=== PATIENT | male | born 1950 | race Caucasian/White ===

== ENCOUNTER 2017-01-03 11:21 | Emergency (ER) | payer BC ==
[2017-01-03] MEDS ORDERED: ONDANSETRON INJ 4 MG/2 ML VIAL IV ONE (11:23)
[2017-01-03] MEDS ORDERED: HYDROmorphone HCL INJ 2 MG/ML VIAL IV ONE ×3 (11:23→11:52)
--- NOTE | 2017-01-03 11:32 | ED.PDOC ---
History of Present Illness - General Chief Complaint: Abdominal Pain Stated Complaint: sudden RLQ abdominal pain Time Seen by Provider: 01/03/17 11:22 Information Source: patient, RN notes reviewed, Vital Signs reviewed, EMS notes reviewed Exam Limitations: clinical condition - SM guarding and unable to allow examination at initial assessment Additional Information: Pt states sudden onset RLQ pain about 1.5 hours ago associated with nausea. Pt writhing in pain. His last meal was breakfast at 0930. Last BM last night normal. called 911. EMS reports pain with every bump on ride. - History of Present Illness Abdominal Pain Onset Location: RLQ Pain Radiation: no radiation Quality: severe, steady, stabbing Timing/Duration: 1-3 hours Improving Factors: nothing Worsening Factors: movement Associated Symptoms: nausea/vomiting Review of Systems - Review of Systems Constitutional: States: no symptoms reported EENTM: States: no symptoms reported Respiratory: States: no symptoms reported Cardiology: States: no symptoms reported Gastrointestinal/Abdominal: States: see HPI, abdominal pain, nausea Genitourinary: States: no symptoms reported Musculoskeletal: States: no symptoms reported Skin: States: no symptoms reported Neurological: States: no symptoms reported Endocrine: States: no symptoms reported Hematologic/Lymphatic: States: no symptoms reported Past Medical History (General) - Patient Medical History Hx Hypertension: Yes Hx Other PMH: Yes - Hyperlipidemia Family Medical History - Family History Father Family History: Unknown Living Status: Unknown Physical Exam - Physical Exam General Appearance: Ill Appearing, Restless, Well Developed, Well Nourished Eyes, Ears, Nose, Throat Exam: PERRL/EOMI, normal ENT inspection Neck: full range of motion, supple Respiratory: lungs clear, normal breath sounds, no respiratory distress, no accessory muscle use Cardiovascular/Chest: normal peripheral pulses, regular rate, rhythm Gastrointestinal/Abdominal: soft, guarding, tenderness - RLQ Back Exam: normal inspection, no CVA tenderness, no vertebral tenderness Extremity: normal range of motion, non-tender, normal inspection 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 Dilaudid 1 mg IV followed by another Dialudid 1 mg IV within 10 minutes due to inadequate response with first dose. CT Scan Abd/Pelvis with Contrast and labs ordered. IV fluids running. 01/03/17 11:44 DDx: Appendicitis, Urolithiasis, Strangulated Hernia, Ischemic Bowel 01/03/17 11:46 Patient reported some improvement in pain after 2nd dose of Dilaudid 1 mg IV. 01/03/17 12:18 Patient's pain down to 6/10 after 3rd dose of Dilaudid [address] looked at by me. Waiting for Radiology read. Possible intussusception. Lactate ordered. 01/03/17 13:18 Pt's pain under control. He denies pain now. He has a soft abdomen. Labs back - essentially normal. CT Scan report back - diverticular disease but no evidence of diverticulitis. Severe lumbar degenerative changes. Pt states he has been having intermittent low back pain for a while now that has been worsening lately. He was doing a lot of yard work yesterday and he was doing yard work when it started today as well. He reports taking Advil 2 tabs bid for a long time for pain. Plan is for observation for another hour. If he is stable, then will d/c home with Rx for T3 and strict return precautions. 01/03/17 14:33 Patient continues to be pain free. His POX goes as low as 85% on Room Air but when prompted to take 2 to 3 deep breaths his POX goes up rapidly to 96%. Ok to discharge home since intends to get a POX monitor from [employer] and she will watch him and remind him to take deep breaths periodically as needed. Strict return precautions given. Departure - Departure Clinical Impression: Anterolisthesis Abdominal pain Qualifiers: Abdominal location: right lower quadrant Qualified Code(s): R10.31 - Right lower quadrant pain Back pain Qualifiers: Back pain location: low back pain Chronicity: acute Back pain laterality: right Sciatica presence: unspecified whether sciatica present Qualified Code(s) : M54.5 - Low back pain Time of Disposition: 14:45 Disposition: Discharge to Home or Self Care Condition: Fair Instructions: DI for Low Back Pain Referrals: LYNETTE HAGER [Primary Care Provider] - 1-2 Weeks Prescriptions: Acetamin W/Cod #3 Tab [Tylenol #3 Tab] 1 ea PO Q4-6H PRN #20 tab PRN Reason: Pain -- Moderate To Severe Home Medications: Ambulatory Orders Acetamin W/Cod #3 Tab [Tylenol #3 Tab] 1 ea PO Q4-6H PRN #20 tab 01/03/17 Additional Instructions: Return to ER if severe pain recurs/unable to function. Follow-up with Primary Care Provider regarding CT Scan findings.
[2017-01-03 11:36] VITALS: TEMP 97.1
[2017-01-03] MEDS ORDERED: SODIUM CHLORIDE 0.9% 1000ML 1,000 ML IVS PRN (11:37)
[2017-01-03] MEDS ORDERED: LACTATED RINGERS 1,000 ML ONE (11:41)
[2017-01-03] MEDS: LACTATED RINGERS 1,000 ML IVS PRN ×2 (11:43→12:20)
[2017-01-03] MEDS ORDERED: SODIUM CHLORIDE 0.9% 1000ML 1,000 ML IVS ONE (11:43)
[2017-01-03] MEDS ORDERED: KETOROLAC TROMETHAMINE INJ 30 MG/ML VIAL IV ONE (12:01)
[2017-01-03] MEDS ORDERED: fentaNYL CITRATE INJ 50 MCG/ML AMP IV PRN (12:01)
[2017-01-03] MEDS ORDERED: PIPERACILLIN/TAZOBACTAM 4.5 GM in SODIUM CHLORIDE 0.9% 100ML 100 ML IVPB ONE (12:53)
[2017-01-03] MEDS ORDERED: levoFLOXacin 750MG IV 750 MG in PREMIX BAG 1 BAG IVPB ONE (12:53)
--- NOTE | 2017-01-03 12:53 | CT ---
EXAM: Abdomen/Pelvis w/Contrast CLINICAL INDICATION: 66-year-old male with severe RIGHT lower quadrant abdominal pain. COMPARISON: None. EXAMINATION: CT of the abdomen and pelvis was performed following intravenous administration of contrast. Oral contrast was not administered. Multiplanar reformatted images were provided. This exam was performed according to our departmental dose optimization program which includes use of automated exposure control, adjustment of the mA and/or kV according to patient size and/or use of iterative reconstruction technique. FINDINGS: Evaluation through the lower chest and upper abdomen is in some areas severely limited secondary to dense streak artifact from the patient's arms positioned over the chest. Chest: Evaluation through the lung bases reveals no focal opacity, pleural effusion or pneumothorax. Heart size is within normal limits. No pericardial effusion. Abdomen and pelvis: Lobulated focus of low attenuation is identified present at the level of the LEFT lobe liver measuring 12 mm with Hounsfield units measuring approximately 16 suggesting simple hepatic cyst. Superior pole circumscribed focus of hypoattenuation within the RIGHT kidney measuring 9 mm with Hounsfield units measuring approximately 18 suggestive of a simple renal cyst. On the LEFT a 15 mm exophytic circumscribed hypoattenuating lesion at the level of the renal hilum with Hounsfield units measuring approximately four compatible with simple renal cyst. The liver, gallbladder, pancreas, spleen, bilateral kidneys and bilateral adrenal glands are otherwise within normal limits. The vessels are patent and normal in caliber. No abdominopelvic lymph nodes are noted to be pathologically enlarged by CT measurement criteria. The bowel is within normal limits with fecal debris present throughout the large bowel. There is no abnormal bowel wall thickness or bowel dilation. Diverticular disease without findings to suggest diverticulitis. No free air. No free abdominopelvic fluid collections. The appendix is within normal limits. The osseous structures revealed degenerative change, particularly of the lower lumbar spine facets. Grade 1 anterolisthesis of L4 relative to L5 suspected secondary to severe facet change at that level. Severe neuroforaminal narrowing present at the L3-4 and L4-5, L5-S1 vertebral levels. Small bilateral fat-containing inguinal hernia. IMPRESSION: 1. No specific acute intra-abdominal findings are noted to suggest etiology of the patient's abdominal pain. 2. 12 mm hepatic cyst. 3. 15 mm LEFT renal simple cyst. 4. Diverticular disease without findings to suggest diverticulitis. 5. The appendix is within normal limits. 6. Grade 1 anterolisthesis of L4 relative to L5 suspected secondary to severe facet change at that level. Severe neuroforaminal narrowing present at the L3-4 and L4-5, L5-S1 vertebral levels. Further evaluation with MRI may be considered. Streak artifact from patient's arm positioning limits evaluation of the lower chest and upper abdomen. Electronically signed by: Soledad Benjamin MD 01/03/2017 12:51 PM CDT Workstation: [id number]
[2017-01-03 14:45] VITALS: BP 127/58; O2SAT 94
== END 2017-01-03 14:49 | disposition home or self-care (01) ==
LOC: ER 11:21
DX: R10.31 Right lower quadrant pain (principal); M54.5 Low back pain; I10 Essential (primary) hypertension; E78.5 Hyperlipidemia, unspecified
CPT/HCPCS: 36415; 74177; 80053; 83605; 85025; J1170; J1885; J2405; J7030; J7120